=== PATIENT | male | born 1985 | race Caucasian/White ===

== ENCOUNTER 2018-11-01 20:36 | Emergency (ER) | payer BC ==
[2018-11-01 21:15] VITALS: BP 140/86
--- NOTE | 2018-11-02 10:34 | EDM.PDOC ---
ED HPI GENERAL MEDICAL PROBLEM - General Chief Complaint: Abdominal Pain Stated Complaint: POSSIBLE APPENDICITIS Time Seen by Provider: 11/01/18 21:00 Source of Information: Reports: Patient, Family History Limitations: Reports: No Limitations - History of Present Illness INITIAL COMMENTS - FREE TEXT/NARRATIVE: This is a 33yo M here for concerns of abdominal pain and discomfort. He has had the discomfort of the lower abdomen centrally since . He states it started at 1/10 and was on and off. He noted today that it increased to 4/10 with movement and it shifted to the right lower quadrant. At this time in the ER he mentions the pain has improved and is centrally located as before and 1/ 10 pain. Patient denies any fever or chills. He had loose stools all day on Thursday/Thursday and no has normal bowel movements with his last normal this afternoon. He denies any other health issues or concerns. Onset: Gradual Duration: Day(s):, Waxing/Waning Location: Reports: Abdomen LOWER ABD Pain Score (Numeric/FACES): 3 - Related Data Allergies Allergy/AdvReac Type Severity Reaction Status Date / Time No Known Allergies Allergy Verified 03/06/14 05:52 Home Meds: Home Meds NK [No Known Home Meds] 03/06/14 [History] Past Medical History Genitourinary History: Reports: Renal Calculus - Past Surgical History Male Surgical History: Reports: Renal Calculus ED ROS GENERAL - Review of Systems Review Of Systems: ROS reveals no pertinent complaints other than HPI. ED EXAM, GI/ABD - Physical Exam Exam: See Below Exam Limited By: No Limitations General Appearance: Alert, WD/WN, No Apparent Distress Eyes: Bilateral: EOMI Ears: Normal External Exam Nose: Normal Inspection Throat/Mouth: Normal Inspection Head: Atraumatic, Normocephalic Neck: Normal Inspection Respiratory/Chest: No Respiratory Distress, Lungs Clear, Normal Breath Sounds, No Accessory Muscle Use, Chest Non-Tender Cardiovascular: Normal Peripheral Pulses, Regular Rate, Rhythm, No Edema GI/Abdominal Exam: Normal Bowel Sounds, Soft, Tender (midline central abdomen above umbilicus, no rebound, no guarding, no RLQ pain or tenderness. ) Back Exam: Normal Inspection Extremities: Normal Inspection Neurological: Alert, Oriented, CN II-XII Intact Skin Exam: Other (acanthosis nigricans) Course - Vital Signs Last Recorded V/S: Last Vital Signs Temp 36.3 C 11/01/18 21: Pulse 93 11/01/18 21:01 Resp 16 11/01/18 21:01 BP 140/86 11/01/18 21: Pulse Ox 99 11/01/18 21:01 Departure - Departure Time of Disposition: 22:00 Disposition: Home, Self-Care 01 Condition: Good Clinical Impression: Gastroenteritis - Discharge Information Instructions: Preventing High Cholesterol, Viral Gastroenteritis, Adult, Easy- to-Read, Preventing Health Risks of Being Overweight, Healthy Eating to Prevent Digestive Disorders Forms: ED Department Discharge, ED Return to Work/School Form Additional Instructions: If the pain gets worse or you start to have fevers return to the clinic or the emergency room, also return to the primary care provider if the pain does not subside for 3 days. Follow a lean meat and high fiber diet for now until the abdominal pain subsides. Follow up with your primary care provider about the diabetes possibility as well. - Problem List & Annotations (1) Gastroenteritis SNOMED Code(s): 10367525 Code(s): K52.9 - NONINFECTIVE GASTROENTERITIS AND COLITIS, UNSPECIFIED Status: Acute Priority: High - Problem List Review Problem List Initiated/Reviewed/Updated: Yes - Assessment/Plan Plan: Counseled on supportive care and management. Discussed close f/u and rtc or ER if abdominal pain symptoms return. Discussed diet and follow up for diarrhea or other BM concerns. F/u with PCP.
== END 2018-11-01 21:23 | disposition home or self-care (01) ==
LOC: LB.ED 20:36
DX: K52.9 Noninfective gastroenteritis and colitis, unspecified (principal)
CPT/HCPCS: 99283

== ENCOUNTER 2021-01-05 09:46 | Emergency (ER) | payer BC ==
[2021-01-05] MEDS ORDERED: Ketorolac 30 MG/ML SDV IVPUSH ONE (09:58)
[2021-01-05] MEDS ORDERED: Sodium Chloride 0.9% 10 ML Syringe FLUSH PRN (09:58)
[2021-01-05] MEDS ORDERED: Ondansetron 4 MG Tab.DIS PO ONE (09:59)
--- NOTE | 2021-01-05 10:01 | EDM.PDOC ---
ED HPI GENERAL MEDICAL PROBLEM - General Chief Complaint: Flank Pain Stated Complaint: abdominal pain Time Seen by Provider: 01/05/21 10:01 Source of Information: Reports: Patient History Limitations: Reports: No Limitations - History of Present Illness INITIAL COMMENTS - FREE TEXT/NARRATIVE: patient presented to the ER with a c/o left flank pain when he woke up from sleep this morning. Associated with nausea/emesis. Reports his pain is colicky and constant, the ride to the hospital made the pain worse. no fever or chills. h/o kidney stones in the past - +3-4 yrs ago that required lithotripsy by US. Patient used some left over hydrocodone from an old prescription. reports that stones run in the family- father and grandmother. He drinks from a faucet - and the water is a well water that is rich in iron. Onset: Sudden Duration: Hour(s): (3) Location: Reports: Abdomen - Related Data Allergies Allergy/AdvReac Type Severity Reaction Status Date / Time No Known Allergies Allergy Verified 03/06/14 05:52 Home Meds: Home Meds Ketorolac [Toradol] 10 mg PO TID PRN #10 tab 01/05/21 [Rx] Past Medical History Genitourinary History: Reports: Renal Calculus - Past Surgical History Male Surgical History: Reports: Renal Calculus ED ROS GENERAL - Review of Systems Review Of Systems: See Below Constitutional: Reports: No Symptoms HEENT: Reports: No Symptoms Respiratory: Reports: No Symptoms Cardiovascular: Reports: No Symptoms GI/Abdominal: Reports: Nausea, Vomiting. Denies: Diarrhea : Reports: No Symptoms Musculoskeletal: Reports: No Symptoms Neurological: Reports: No Symptoms Psychiatric: Reports: No Symptoms ED EXAM, RENAL/ - Physical Exam Exam: See Below Exam Limited By: No Limitations General Appearance: Alert, WD/WN, No Apparent Distress Eye Exam: Bilateral Eye: EOMI Nose: Normal Inspection Respiratory/Chest: No Respiratory Distress Cardiovascular: Normal Peripheral Pulses GI/Abdominal: Normal Bowel Sounds, Soft, Non-Tender Back Exam: Normal Inspection Neurological: Alert, Oriented, No Motor/Sensory Deficits Psychiatric: Normal Affect Course - Vital Signs Last Recorded V/S: Last Vital Signs Temp 36.9 C 01/05/21 10:17 Pulse 104 H 01/05/21 10:17 Resp 16 01/05/21 10:17 BP 147/88 H 01/05/21 10:17 Pulse Ox 97 01/05/21 10:17 - Orders/Labs/Meds Orders: Active Orders 24 hr Category Date Time Status Abdomen Pelvis wo Cont [CT] Stat Exams 01/05/21 11:26 Taken Sodium Chloride 0.9% [Saline Flush] Med 01/05/21 09:58 Active 10 ml FLUSH ASDIRECTED PRN Saline Lock Insert [OM.PC] Routine Oth 01/05/21 09:58 Ordered Medication Orders Sodium Chloride (Sodium Chloride 0.9% 10 Ml Syringe) 10 ml FLUSH ASDIRECTED PRN PRN Reason: Keep Vein Open Labs: Laboratory Tests 01/05/21 01/05/21 01/05/21 Range/Units 10:15 10:15 11:13 WBC 11.3 H (4.0-11.0) K/uL RBC 5.48 (4.50-6.50) M/uL Hgb 16.4 (13.0-18.0) g/dL Hct 46.2 (40.0-54.0) % MCV 84 (76-96) fL MCH 29.9 (27.0-32.0) pg MCHC 35.5 H (31.0-35.0) g/dL RDW 12.8 (11.0-16.0) % Plt Count 236 (150-400) K/uL MPV 9.1 (6.0-10.0) fL Sodium 141 (136-145) mmol/L Potassium 3.9 (3.5-5.1) mmol/L Chloride 104 (98-107) mmol/L Carbon Dioxide 24.2 (21.0-32.0) mmol/L Anion Gap 16.7 H (5.0-15.0) mmol/L BUN 13 (8-26) mg/dL Creatinine 1.22 (0.70-1.30) mg/dL Est Cr Clr Drug Dosing TNP Estimated GFR (MDRD) > 60 (>60) MLS/MIN BUN/Creatinine Ratio 10.7 (6-25) Glucose 153 H D (74-100) mg/dL Calcium 8.6 (8.5-10.1) mg/dL Urine Color Yellow Urine Appearance Clear (CLEAR) Urine pH 7.0 (5.0-8.0) Ur Specific [place] 1.025 (1.003-1.030) Urine Protein 30 H (NEGATIVE) mg/dL Urine Glucose (UA) Negative (NEGATIVE) mg/dL Urine Ketones Negative (NEGATIVE) mg/dL Urine Occult Blood Large H (NEGATIVE) Urine Nitrite Negative (NEGATIVE) Urine Bilirubin Negative (NEGATIVE) Urine Urobilinogen 0.2 (0.2-1.0) E.U./dL Ur Leukocyte Esterase Negative (NEGATIVE) Urine RBC 50-75 H /HPF Urine WBC Not seen /HPF Ur Squamous Epith Cells Few /HPF Meds: Medications Generic Name Dose Route Start Last Admin Trade Name Freq PRN Reason Stop Dose Admin Sodium Chloride 10 ml 01/05/21 09:58 Sodium Chloride 0.9% 10 Ml Syringe FLUSH ASDIRECTED PRN Keep Vein Open Discontinued Medications Generic Name Dose Route Start Last Admin Trade Name Freq PRN Reason Stop Dose Admin Sodium Chloride 1,000 mls @ 999 mls/hr 01/05/21 10:11 01/05/21 10:15 Normal Saline IV 01/05/21 11:11 999 mls/hr .BOLUS ONE Administration Ketorolac Tromethamine 30 mg 01/05/21 09:58 01/05/21 10:15 Ketorolac 30 Mg/Ml Sdv IVPUSH 01/05/21 09:59 30 mg ONETIME ONE Administration Ketorolac Tromethamine Confirm 01/05/21 10:21 Ketorolac 30 Mg/Ml Sdv Administered 01/05/21 10:22 Dose 30 mg .ROUTE .STK-MED ONE Ondansetron HCl 4 mg 01/05/21 09:59 01/05/21 10:24 Ondansetron 4 Mg Tab.Dis PO 01/05/21 10:00 4 mg ONETIME ONE Administration Ondansetron HCl Confirm 01/05/21 10:36 Ondansetron 4 Mg Tab.Dis Administered 01/05/21 10:37 Dose 4 mg .ROUTE .STK-MED ONE - Re-Assessments/Exams Free Text/Narrative Re-Assessment/Exam: 01/05/21 10:15 IV was established. pain control with IV Toradol and nausea control with Zofran. labs were ordered - IVF bolus 01/05/21 12:07 labs showed WBC 11.5 UA++ RBC/WBC pain was controlled, as well as, nausea. Reports pain at 0 level will d/c home on toradol, PO abx and flomax Departure - Departure Time of Disposition: 12:08 Disposition: Home, Self-Care 01 Condition: Good Clinical Impression: Ureteric colic, Left ureteral stone - Discharge Information *PRESCRIPTION DRUG MONITORING PROGRAM REVIEWED*: Not Applicable *COPY OF PRESCRIPTION DRUG MONITORING REPORT IN PATIENT [facility]ERT[facility]: Not Applicable Prescriptions: Ketorolac [Toradol] 10 mg PO TID PRN #10 tab PRN Reason: Pain (Moderate 4-6) Referrals: PCP,None [Primary Care Provider] - Forms: ED Department Discharge Sepsis Event Note (ED) - Focused Exam Vital Signs: Vital Signs Temp Pulse Resp BP Pulse Ox 01/05/21 10:17 36.9 C 104 H 16 147/88 H 97 - Problem List & Annotations (1) Renal colic SNOMED Code(s): 9810809 Code(s): N23 - UNSPECIFIED RENAL COLIC Status: Acute Priority: Low Current Visit: No Onset Date: 03/06/14 Annotation/Comment:: 03/06/14 - suspected acute renal colic, suspected right-sided obstructed kidney stone. (2) Kidney stone SNOMED Code(s): 34591331 Code(s): N20.0 - CALCULUS OF KIDNEY Status: Acute Priority: Low Current Visit: No Onset Date: 03/06/14 Annotation/Comment:: 03/06/14 - suspected acute renal colic, suspected right-sided obstructed kidney stone. (3) Left ureteral stone SNOMED Code(s): 41581932 Code(s): N20.1 - CALCULUS OF URETER Status: Acute Priority: Medium Current Visit: Yes - Problem List Review Problem List Initiated/Reviewed/Updated: Yes - My Orders Last 24 Hours: My Active Orders 01/05/21 09:58 Sodium Chloride 0.9% [Saline Flush] 10 ml FLUSH ASDIRECTED PRN Saline Lock Insert [OM.PC] Routine 01/05/21 11:26 Abdomen Pelvis wo Cont [CT] Stat - Assessment/Plan Last 24 Hours: My Active Orders 01/05/21 09:58 Sodium Chloride 0.9% [Saline Flush] 10 ml FLUSH ASDIRECTED PRN Saline Lock Insert [OM.PC] Routine 01/05/21 11:26 Abdomen Pelvis wo Cont [CT] Stat Plan: - increase fluids intake - take pain meds as prescribed - follow up with your PCP in 3-7 days as needed - return to the ER if symptoms got worse or any concerns
[2021-01-05] MEDS ORDERED: Sodium Chloride 0.9% 1,000 ML IV ONE (10:11)
[2021-01-05 10:18] VITALS: BP 147/88; PULSE 104
[2021-01-05] MEDS ORDERED: Ketorolac 30 MG/ML SDV ONE (10:21)
[2021-01-05] MEDS ORDERED: Ondansetron 4 MG Tab.DIS ONE (10:36)
[2021-01-05] MEDS ORDERED: Ibuprofen 800 MG Tab ONE (12:00)
[2021-01-05] MEDS ORDERED: Ciprofloxacin 500 MG Tab ONE (12:00)
[2021-01-05] MEDS ORDERED: traMADol 50 MG Tab ONE (12:00)
--- NOTE | 2021-01-06 09:11 | CT ---
Date of Service: 01/05/21 Clinical Data: left side colicky pain UNENHANCED ABDOMEN AND PELVIC CT: Multislice axial acquisition was performed without IV or oral contrast. Comparison is made to a prior exam dated 01/02/20. The lung bases are clear. The heart size is normal. The unenhanced liver appears normal. No focal hepatic lesions. The gallbladder appears normal. No calcified gallstones. No pericholecystic fluid. The spleen appears normal. The pancreas appears normal. The right and left adrenals appear normal. There are bilateral nonobstructing renal calculi. There is a 5 mm left ureteral calculus located in the proximal left ureter at the L3 level. There is hydronephrosis and hydroureter proximal to it. The left kidney also appears to be mildly swollen compared to the right and there is mild perinephric fat stranding on the left. This is most likely related to obstruction. Pyelonephritis should at least be considered The kidneys and collecting systems otherwise appear normal. The bladder is partially fluid filled It appears normal. No evidence of appendicitis. No free air. No free fluid. No dilated loops of bowel. No adenopathy. No aortic aneurysm. There is a fat-containing umbilical hernia. No other significant findings. IMPRESSION: 6 mm left ureteral calculus with obstruction. Other findings as discussed above. [id number] [facility]
== END 2021-01-05 12:25 | disposition home or self-care (01) ==
LOC: LB.ED 09:46
DX: N13.2 Hydronephrosis with renal and ureteral calculous obstruction (principal); Z87.442 Personal history of urinary calculi
CPT/HCPCS: 36415; 74176; 80048; 81001; 85027; 96374; 99284; A9270; J1885; J7030

== ENCOUNTER 2021-12-16 06:29 | Emergency (ER) | payer BC ==
[2021-12-16] MEDS: Ondansetron 4 MG/2 ML SDV IVPUSH ONE (08:16)
[2021-12-16] MEDS: Ketorolac 60 MG/2 ML SDV IVPUSH ONE (08:16)
[2021-12-16] MEDS: Sodium Chloride 0.9% 1,000 ML IV ONE (08:17)
[2021-12-16 08:24] VITALS: BP 140/78; PULSE 90
[2021-12-16 08:49] LABS: ESTIMATED GFR 108 mL/min (>60)
[2021-12-16] MEDS: Ketorolac 60 MG/2 ML SDV ONE (12:58)
[2021-12-16] MEDS: Ondansetron 4 MG/2 ML SDV ONE (12:58)
== END 2021-12-16 10:10 | disposition home or self-care (01) ==
LOC: LB.ED 06:29
DX: N13.2 Hydronephrosis with renal and ureteral calculous obstruction (principal)
CPT/HCPCS: 36415; 74176; 80053; 81001; 85025; 96361; 96374; 96375; 99282; 99284-25; J1885; J2405; J7030

== ENCOUNTER 2022-01-20 13:53 | Emergency (ER) | payer BC ==
[2022-01-20 14:11] VITALS: BP 144/86; PULSE 105
[2022-01-20] MEDS ORDERED: Lactated Ringers 1,000 ML IV SCH (14:30)
[2022-01-20] MEDS: Ketorolac 60 MG/2 ML SDV IVPUSH ONE (14:36)
[2022-01-20] MEDS: Ketorolac 30 MG/ML SDV ONE (14:37)
[2022-01-20] MEDS: Lactated Ringers 1,000 ML IV ONE (14:46)
[2022-01-20 15:05] LABS: ESTIMATED GFR 83 mL/min (>60)
[2022-01-20] MEDS: cefTRIAXone 1 GM Vial IM ONE (15:41)
[2022-01-20] MEDS: cefTRIAXone 1 GM Vial ONE (15:42)
== END 2022-01-20 15:53 | disposition home or self-care (01) ==
LOC: LB.ED 13:53
DX: N23 Unspecified renal colic (principal)
CPT/HCPCS: 36415; 74176; 80053; 81001; 83605; 83690; 85025; 96361; 96372; 96374; 99283; 99284-25; J0696; J1885; J7120

== ENCOUNTER 2023-06-07 02:52 | Emergency (ER) | payer BC ==
[2023-06-07] MEDS ORDERED: Ondansetron 4 MG/2 ML SDV IVPUSH ONE (03:00)
[2023-06-07] MEDS ORDERED: HYDROmorphone 2 MG/ML Syringe IVPUSH ONE (03:00)
[2023-06-07] MEDS ORDERED: HYDROmorphone 2 MG/ML Syringe ONE (03:12)
[2023-06-07] MEDS ORDERED: Ondansetron 4 MG/2 ML SDV ONE (03:14)
[2023-06-07] MEDS ORDERED: Ketorolac 30 MG/ML SDV IVPUSH ONE (03:33)
[2023-06-07] MEDS ORDERED: Ketorolac 30 MG/ML SDV ONE (03:35)
[2023-06-07 03:38] LABS: BASOPHILS ABSOLUTE AUTO 0.04 K/uL (0.02-0.10); BASOPHILS PERCENT AUTO 0.2 % (0.0-0.5); EOSINOPHILS ABSOLUTE AUTO 0.19 K/uL (0.04-0.40); EOSINOPHILS PERCENT AUTO 1.2 % (1.0-5.0); HEMOGLOBIN 15.2 g/dL (13.0-18.0); LYMPHOCYTES PERCENT AUTO 14.5 % (20.0-40.0); MEAN CORPUSCULAR HEMOGLOBIN 29.3 pg (27.0-32.0); MEAN CORPUSCULAR HGB CONC 34.5 g/dL (31.0-35.0); MEAN CORPUSCULAR VOLUME 85 fL (76-96); MEAN PLATELET VOLUME 9.6 fL (6.0-10.0); MONOCYTES ABSOLUTE AUTO 0.99 K/uL (0.20-0.80); NEUTROPHILS ABSOLUTE AUTO 12.88 K/uL (2.00-7.50); NEUTROPHILS PERCENT AUTO 78.1 % (45.0-70.0); PLATELET COUNT,PLT 260 K/uL (150-400); RED BLOOD CELL COUNT 5.18 M/uL (4.50-6.50); RED CELL DISTRIBUTION WIDTH 12.7 % (11.0-16.0); WHITE BLOOD CELL COUNT,WBC 16.5 K/uL (4.0-11.0)
[2023-06-07] MEDS: Sodium Chloride 0.9% 1,000 ML IV ONE ×2 (03:40→03:48)
[2023-06-07 03:51] LABS: A/G RATIO 1.1 (0.8-2.0); ALBUMIN 3.9 g/dL (3.4-5.0); ANION GAP 11.6 mmol/L (5.0-15.0); BILIRUBIN TOTAL 0.6 mg/dL (0.0-1.0); BUN/CREATININE RATIO 14.8 (6-25); CALCIUM 9.3 mg/dL (8.5-10.1); CARBON DIOXIDE,CO2 25.9 mmol/L (21.0-32.0); CREATININE 1.15 mg/dL (0.70-1.30); EST CRCL DRUG DOSING (CG) 85.91 mL/min; POTASSIUM,K 3.5 mmol/L (3.5-5.1); PROTEIN TOTAL,TP 7.4 g/dL (6.4-8.2)
[2023-06-07 03:54] LABS: APPEARANCE,URINE CLEAR (CLEAR); BILIRUBIN,URINE NEGATIVE (NEGATIVE); COLOR,URINE YELLOW; GLUCOSE,URINE NEGATIVE (NEGATIVE); KETONES,URINE 40 mg/dL (NEGATIVE); LEUKOCYTE ESTERASE,URINE NEGATIVE (NEGATIVE); NITRITE,URINE NEGATIVE (NEGATIVE); OCCULT BLOOD,URINE MODERATE (NEGATIVE); PROTEIN,URINE NEGATIVE (NEGATIVE); UROBILINOGEN,URINE 0.2 E.U./dL (0.2-1.0)
[2023-06-07 03:57] LABS: RBC,URINE 20-30 /HPF; SQUAMOUS EPITHELIAL CELLS,UR FEW /HPF; WBC,URINE NOT SEEN /HPF
[2023-06-07] MEDS ORDERED: Acetaminophen/HYDROcodone 325-5 MG Tab ONE (04:00)
[2023-06-07 05:10] VITALS: BP 146/92; PULSE 92
== END 2023-06-07 05:00 | disposition home or self-care (01) ==
LOC: LB.ED 02:52
DX: N13.2 Hydronephrosis with renal and ureteral calculous obstruction (principal); I10 Essential (primary) hypertension; E11.9 Type 2 diabetes mellitus without complications; Z79.84 Long term (current) use of oral hypoglycemic drugs; Z79.899 Other long term (current) drug therapy
CPT/HCPCS: 36415; 74176; 80053; 81001; 85025; 96361; 96374; 96375; 99284-25; A9270-GY; J1170; J1885; J2405; J7030